=== PATIENT | male | born 1940 | race Caucasian/White ===

== ENCOUNTER 2021-11-09 08:41 | Inpatient (IN) | payer OTHER, MEDICAID ==
[~2021-11-09] VITALS: Ht 152.4 cm; Wt 60.8 kg
[2021-11-09 08:41] VITALS: BP_SYST 159
--- NOTE | 2021-11-09 08:49 | NUR ---
CT Radiology at .
[2021-11-09 09:12] LABS: BASOPHILS % (AUTO) 0.4 % (0.0-2.0); EOSINOPHILS # (AUTO) 0.1 K/uL (0.0-0.4); EOSINOPHILS % (AUTO) 1.8 % (0.0-4.0); HEMATOCRIT 45.3 % (36-54); HEMOGLOBIN 14.9 g/dL (14.0-18.0); LYMPHOCYTES # (AUTO) 1.1 K/uL (1.0-5.5); LYMPHOCYTES % (AUTO) 15.9 % (20.5-51.5); MEAN CORPUSCULAR HEMOGLOBIN 31 pg (27-31); MEAN CORPUSCULAR HGB CONC 33 % (32-36); MEAN CORPUSCULAR VOLUME 93 fL (79.0-98.0); MONOCYTES # (AUTO) 0.6 K/uL (0.0-1.0); MONOCYTES % (AUTO) 8.8 % (1.7-9.3); NEUTROPHILS # (AUTO) 4.9 K/uL (1.8-7.7); NEUTROPHILS % (AUTO) 73.1 % (40.0-70.0); PLATELET COUNT (AUTO) 158 K/uL (130-430); RED BLOOD CELL COUNT(AUTO) 4.87 MIL/uL (4.2-6.2); RED CELL DISTRIBUTION WIDTH 14.2 % (9.0-15.0); WHITE BLOOD COUNT (AUTO) 6.7 K/uL (4.8-10.8)
[2021-11-09 09:17] LABS: ANION GAP 10 (5-15); CALCIUM 8.5 mg/dL (8.4-11.0); CHLORIDE 108 mmol/L (98-107); CREATININE 1.05 mg/dL (0.55-1.30); GLUCOSE 123 mg/dL (70-99); POTASSIUM 3.9 mmol/L (3.5-5.1); SODIUM SERUM 144 mmol/L (136-145); UREA NITROGEN, BLOOD 19 mg/dL (8-21)
[2021-11-09 09:26] LABS: ALANINE AMINOTRANSFERASE 129 U/L (12-78); ALBUMIN 3.1 g/dL (3.4-4.8); ASPARTATE AMINOTRANSFERASE 120 U/L (10-37)
--- NOTE | 2021-11-09 09:36 | NUR ---
ASSUMED CARE, PT AAOX4, PARAGUAYAN SPEAKING-SPEAKING 2-3 WORD SENTENCES, SOB, ON VIA NC @ 98%, TACHYPNEIC AT 26 BREATHS/MIN. STATES BEING SOB X 1 WEEK, PROGRESSIVELY GETTING WORSE. REPORTS ANTERIOR CHEST WALL PAIN RADIATING TO LEFT SHOULDER , INTERMITTENT SINCE THIS AM. DENIES NUMBNESS/TINGLING. SKIN W/D. BLE EDEMA NOTED, MORE IN LEFT KNEE AREA. REPORTS LONG HISTORY OF CARDIAC PROBLEMS, UNKNOWN EXACT HISTORY.
[2021-11-09] MEDS ORDERED: dilTIAZem HCL IVP 5 MG/ML VIAL IVP ONE (10:15)
--- NOTE | 2021-11-09 10:28 | NUR ---
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
--- NOTE | 2021-11-09 11:09 | NUR ---
Admit bed requested Patient will be admitted to care of . Admitted to TELE unit. Diagnosis CHF, AFIB Inpatient (Yes or No) Y Observation (Yes or No) N Orientation concerns or request close to nursing station (Yes or No) N Covid Status PENDING On vent or bipap N Isolation requirements N Needs a sitter N From Home (Yes or if No enter name of facility) Y Requires Dialysis (Yes or No) N Med Rec Completed (Yes of No) Y
[2021-11-09] MEDS ORDERED: FUROSEMIDE 20 MG/2 ML VIAL IVP ONE (11:15)
--- NOTE | 2021-11-09 11:19 | NUR ---
PT UPDATED ON PLAN OF CARE FOR ADMISSION, VERBALIZED UNDERSTANDING. SAFTEY PRECAUTIONS IN PAC. URINAL PROVIDD.
--- NOTE | 2021-11-09 15:26 | NUR ---
Patient will be admitted to care of DR TOLEDO. Admitted to unit. Will go to room . Belongings list completed. Complete and up to date summary report printed. SBAR report to be given at bedside with opportunity for questions.
[2021-11-09 16:00] VITALS: BP_SYST 122
[2021-11-09 16:40] VITALS: BP_SYST 122
--- NOTE | 2021-11-09 17:46 | NUR ---
PT ADMITTED UNABLE TORECALL MEDICATIONS AT THIS TIME NO DISTRESS NOTED AT THIS TIME WILL CONTINUE TO MONITOR AND ASSESSS AND CALL MD FOR ORDERS
--- NOTE | 2021-11-09 18:56 | NUR ---
PT BELONGINGS AT BEDSIDE ANT PT HAS MEDICATION BOTTLES WILL ENDORSE TO ONCOMING RN TO FOLLOW UP WITH MEDICATION RECONCILLIATION CN MADE AWARE PT REMAINS A POOR HISTORIAN
[2021-11-09] MEDS ORDERED: HYDROcodone/ACETAMIN 10-325 MG TAB PO PRN (19:00)
[2021-11-09] MEDS ORDERED: NALOXONE HCL 0.4 MG/ML AMP (NARCAN) IVP PRN ×2 (19:00)
[2021-11-09] MEDS ORDERED: ACETAMINOPHEN 325 MG TABLET PO PRN ×2 (19:00→19:15)
[2021-11-09] MEDS ORDERED: ONDANSETRON HCL 4 MG/2 ML VIAL IVP PRN (19:00)
[2021-11-09] MEDS ORDERED: APIX2.5T PO (19:41)
[2021-11-09] MEDS ORDERED: METF750T46 PO (19:44)
[2021-11-09 20:00] VITALS: BP_SYST 127
--- NOTE | 2021-11-09 20:00 | NUR ---
Received report from Sindi HOU. Pt is awake, alert and oriented x4, vs stable, afib 110-120's on the monitor, denies any pain no acute distress. Medications will be reconciled. Assuming care for pt. Maintain safety, side rails up, call light within reach, bed to low position. Will closely monitor pt.
[2021-11-09] MEDS ORDERED: VALS80TA2 PO (20:01)
[2021-11-09] MEDS ORDERED: ASPI-1393 PO (20:03)
[2021-11-09] MEDS ORDERED: FERR-69 PO (20:10)
[2021-11-09] MEDS ORDERED: PRED10TA PO (20:10)
[2021-11-09] MEDS ORDERED: FURO-150 PO (20:12)
[2021-11-09] MEDS ORDERED: AMIO200T66 PO (20:13)
[2021-11-09] MEDS ORDERED: POTA-197 PO (20:36)
[2021-11-09] MEDS: FUROSEMIDE 20 MG/2 ML VIAL IVP SCH (20:47)
[2021-11-09] MEDS ORDERED: PRO40 PO (20:50)
[2021-11-09] MEDS ORDERED: NORMAL SALINE 5 ML DISP.SYRIN IVF SCH (22:00)
[2021-11-09] MEDS: NORMAL SALINE 5 ML DISP.SYRIN IVF SCH (22:00)
--- NOTE | 2021-11-09 22:12 | NUR ---
Paged Dr. Winter to reconcile meds. Awaiting for call back.
--- NOTE | 2021-11-09 23:08 | NUR ---
CRITICAL LAB: Soni Graham from Laboratory called with critical lab value Troponin 174. Medical record number and patient name verified. Read back of values done. Paged Dr. Winter to notified of value. Awaiting for call back. orders given at this time. Addendum: 11/09/21 at 2311 by [employer] department supervisor Awaiting for call back for possible orders.
[2021-11-09] MEDS ORDERED: AMIODARONE HCL 200 MG TABLET PO ONE (23:15)
[2021-11-09 23:47] VITALS: BP_SYST 123
--- NOTE | 2021-11-09 23:58 | NUR ---
2nd page to Dr. Winter. called back and informed with Trop 179, pt denies any chest pain, vs stable but heart rate goes up as high in the 125 afib on monitor. Order received for cardiology consult with Dr. Moy Vasquez. Also, informed amiodarone will be given. Assuming care for pt.
[2021-11-10] MEDS: HYDROcodone/ACETAMIN 5-325 MG TAB (NORCO/ VICODIN) PO PRN (00:27)
[2021-11-10] MEDS: APIXABAN 2.5 MG TABLET PO SCH ×3 (00:28→22:50)
[2021-11-10] MEDS: POTASSIUM CHLORIDE 20 MEQ TAB.PRT.SR PO SCH ×2 (00:32→09:41)
[2021-11-10 00:58] VITALS: BP_SYST 125
[2021-11-10 04:52] VITALS: BP_SYST 127
[2021-11-10 06:22] LABS: BASOPHILS % (AUTO) 0.6 % (0.0-2.0); EOSINOPHILS # (AUTO) 0.1 K/uL (0.0-0.4); EOSINOPHILS % (AUTO) 1.9 % (0.0-4.0); HEMATOCRIT 47.5 % (36-54); HEMOGLOBIN 15.8 g/dL (14.0-18.0); LYMPHOCYTES # (AUTO) 1.2 K/uL (1.0-5.5); LYMPHOCYTES % (AUTO) 17.2 % (20.5-51.5); MEAN CORPUSCULAR HEMOGLOBIN 31 pg (27-31); MEAN CORPUSCULAR HGB CONC 33 % (32-36); MEAN CORPUSCULAR VOLUME 92 fL (79.0-98.0); MONOCYTES # (AUTO) 0.6 K/uL (0.0-1.0); MONOCYTES % (AUTO) 8.5 % (1.7-9.3); NEUTROPHILS # (AUTO) 5.1 K/uL (1.8-7.7); NEUTROPHILS % (AUTO) 71.8 % (40.0-70.0); PLATELET COUNT (AUTO) 164 K/uL (130-430); RED BLOOD CELL COUNT(AUTO) 5.14 MIL/uL (4.2-6.2); RED CELL DISTRIBUTION WIDTH 14.4 % (9.0-15.0); WHITE BLOOD COUNT (AUTO) 7.1 K/uL (4.8-10.8)
[2021-11-10 06:33] LABS: ANION GAP 8 (5-15); CALCIUM 8.5 mg/dL (8.4-11.0); CHLORIDE 104 mmol/L (98-107); CREATININE 1.01 mg/dL (0.55-1.30); GLUCOSE 116 mg/dL (70-99); POTASSIUM 4.2 mmol/L (3.5-5.1); SODIUM SERUM 141 mmol/L (136-145); UREA NITROGEN, BLOOD 22 mg/dL (8-21)
[2021-11-10 06:42] LABS: PHOSPHORUS 4.4 mg/dL (2.7-4.5)
[2021-11-10] MEDS: NORMAL SALINE 5 ML DISP.SYRIN IVF SCH ×3 (06:51→22:52)
--- NOTE | 2021-11-10 07:27 | NUR ---
CRITICAL LAB: Miladys Chin from Laboratory called with critical lab value [id number]. Medical record number and patient name verified. Read back of values done. Dr. Winter will be notified of value. Will pass on to receiving RN Sindi. Pt stable no chespain at this time.
--- NOTE | 2021-11-10 07:45 | NUR ---
RECEIVED PT WITH CHEST PAIN 09/06 ASSEMBLY WORKER MADE AWARE NORCO GIVEN LASIX GIVEN AM MEDS GIVEN ASSESSMENT COMPLETED TROPONIN RESULTS REPORTED TO ASSEMBLY WORKER PLAN OF CARE REVIEWED WILL CONTINUE TO MONIOTR AND ASSESS
[2021-11-10] MEDS ORDERED: NON-FORMULARY MEDICATION (Ferrous Sulfate 325 MG) PO SCH (09:00)
[2021-11-10] MEDS ORDERED: VALSARTAN 80 MG TABLET (DIOVAN) PO SCH (09:00)
--- NOTE | 2021-11-10 09:30 | NUR ---
PT DENIES CHEST PAIN AT THIS TIME NO DISTRESS AWAITING CARDIOLOGIT TO ROUND
[2021-11-10] MEDS: FUROSEMIDE 20 MG/2 ML VIAL IVP SCH ×2 (09:40→22:50)
[2021-11-10] MEDS: LOSARTAN POTASSIUM 50 MG TABLET (COZAAR) PO SCH (09:41)
[2021-11-10] MEDS: predniSONE 10 MG TABLET PO SCH (09:41)
[2021-11-10] MEDS: FERROUS SULFATE 325 MG TABLET.DR PO SCH (09:41)
[2021-11-10] MEDS: ASPIRIN 81 MG TABLET(ECOTRIN) PO SCH (09:42)
[2021-11-10] MEDS: AMIODARONE HCL 200 MG TABLET PO SCH ×2 (09:42→22:49)
[2021-11-10] MEDS ORDERED: CARVEDILOL 6.25 MG TABLET (COREG) PO ONE (11:15)
--- NOTE | 2021-11-10 12:00 | NUR ---
CHECKER AND PACKER IN TO SEE PT WITH NEW MEDICATION NOTED AND CARRIED OUT
[2021-11-10 12:47] VITALS: BP_SYST 129
[2021-11-10 16:37] VITALS: BP_SYST 98
[2021-11-10] MEDS: INSULIN REGULAR, HUMAN 100 UNITS/ML, 10 ML VIAL (humuLIN R) SUBCUT PRN (18:00)
--- NOTE | 2021-11-10 19:35 | NUR ---
STABLE NO CHEST PAIN WILL ENDORSE MEENA TO NOC RN
--- NOTE | 2021-11-10 20:00 | NUR ---
Received pt. Pt is awake alert and oriented x3, vs stable, afib controlled on the monitor. Patient is sitting up, denies any pain, no sign of distress. Assuming care for pt. Scheduled meds will be given as ordered. Labs reviewed. Assuming care for pt.
[2021-11-10 20:09] VITALS: BP_SYST 93
[2021-11-10 22:45] VITALS: BP_SYST 113
[2021-11-10] MEDS: CARVEDILOL 6.25 MG TABLET (COREG) PO SCH (22:51)
[2021-11-11 00:51] VITALS: BP_SYST 92
[2021-11-11 02:16] VITALS: BP_SYST 99
[2021-11-11] MEDS: LORazepam 2 MG/ML VIAL IVP PRN (02:20)
[2021-11-11] MEDS: NORMAL SALINE 5 ML DISP.SYRIN IVF SCH ×3 (06:28→21:29)
[2021-11-11 06:34] LABS: BASOPHILS % (AUTO) 0.5 % (0.0-2.0); EOSINOPHILS % (AUTO) 0.4 % (0.0-4.0); HEMATOCRIT 43.9 % (36-54); HEMOGLOBIN 14.5 g/dL (14.0-18.0); LYMPHOCYTES # (AUTO) 0.9 K/uL (1.0-5.5); LYMPHOCYTES % (AUTO) 12.9 % (20.5-51.5); MEAN CORPUSCULAR HEMOGLOBIN 31 pg (27-31); MEAN CORPUSCULAR HGB CONC 33 % (32-36); MEAN CORPUSCULAR VOLUME 93 fL (79.0-98.0); MONOCYTES # (AUTO) 0.6 K/uL (0.0-1.0); MONOCYTES % (AUTO) 8.7 % (1.7-9.3); NEUTROPHILS # (AUTO) 5.5 K/uL (1.8-7.7); NEUTROPHILS % (AUTO) 77.5 % (40.0-70.0); PLATELET COUNT (AUTO) 152 K/uL (130-430); RED BLOOD CELL COUNT(AUTO) 4.74 MIL/uL (4.2-6.2); RED CELL DISTRIBUTION WIDTH 14.2 % (9.0-15.0); WHITE BLOOD COUNT (AUTO) 7.1 K/uL (4.8-10.8)
[2021-11-11 07:12] LABS: ALANINE AMINOTRANSFERASE 140 U/L (12-78); ALBUMIN 2.7 g/dL (3.4-4.8); ANION GAP 6 (5-15); ASPARTATE AMINOTRANSFERASE 88 U/L (10-37); CALCIUM 8.2 mg/dL (8.4-11.0); CHLORIDE 106 mmol/L (98-107); CREATININE 1.01 mg/dL (0.55-1.30); GLUCOSE 116 mg/dL (70-99); PHOSPHORUS 4.2 mg/dL (2.7-4.5); POTASSIUM 4.1 mmol/L (3.5-5.1); SODIUM SERUM 141 mmol/L (136-145); TOTAL BILIRUBIN 0.6 mg/dL (0.0-1.0); UREA NITROGEN, BLOOD 30 mg/dL (8-21)
--- NOTE | 2021-11-11 07:28 | NUR ---
Endorsed pt to Manjeetrodger campo rn. Pt is asleep but arousable. PT vs stable, no acute distress noted. blood sugar 100 this morning. Maintain safety, side rails up, call light within reach, bed to low position.
--- NOTE | 2021-11-11 07:41 | NUR ---
Report received from SAVI Nur for continuity of care. Patient in stable condition. No distress noted.
[2021-11-11 08:00] VITALS: BP_SYST 100
[2021-11-11] MEDS: POTASSIUM CHLORIDE 20 MEQ TAB.PRT.SR PO SCH (09:52)
[2021-11-11] MEDS: ASPIRIN 81 MG TABLET(ECOTRIN) PO SCH (09:52)
[2021-11-11] MEDS: predniSONE 10 MG TABLET PO SCH (09:53)
[2021-11-11] MEDS: AMIODARONE HCL 200 MG TABLET PO SCH ×2 (09:53→21:22)
[2021-11-11] MEDS: FERROUS SULFATE 325 MG TABLET.DR PO SCH (09:53)
[2021-11-11] MEDS: LOSARTAN POTASSIUM 50 MG TABLET (COZAAR) PO SCH (09:54)
[2021-11-11] MEDS: CARVEDILOL 6.25 MG TABLET (COREG) PO SCH ×2 (09:54→21:21)
[2021-11-11] MEDS: FUROSEMIDE 20 MG/2 ML VIAL IVP SCH ×2 (09:56→21:21)
[2021-11-11] MEDS: APIXABAN 2.5 MG TABLET PO SCH ×2 (10:04→21:21)
--- NOTE | 2021-11-11 11:07 | NUR ---
CONSULTATION PAGED/CALLED Reason for Consultation: [] TRANSAMINITIS Person Who was Notified: [] CARLOS Consulting Physician: [] DR GARCIA, A Art Gilder Specialty: [] GI Ordering Physician: [] DR Catia TOLEDO
--- NOTE | 2021-11-11 11:15 | NUR ---
CONSULTATION PAGED/CALLED Reason for Consultation: [] RESP FAIL Person Who was Notified: [] NAZIA Consulting Physician: [] DR NIX Juvenile Court Judge Specialty: [] PULMO Ordering Physician: [] DR OTLEDO
[2021-11-11 12:00] VITALS: BP_SYST 108
--- NOTE | 2021-11-11 12:23 | NUR ---
PHYSICAL THERAPY EVALUATION COMPLETED. PATIENT IS SUPERVISED IN HIS FUNCTIONAL MOBILITY. HE NEEDS TO USE THE FWW. HE AMBULATED WITH 4 LITERS OF O2. NURSING MAY CONTINUE TO ASSIST THE PATIENT. DISCHARGE FROM PHYSICAL THERAPY. Addendum: 11/11/21 at 1225 by Gabriel Britton PT INFORMED PATIENT'S RN.
--- NOTE | 2021-11-11 13:00 | NUR ---
Patient explained to be on NPO from radiology department until time of procedure around 7 pm. Patient said he is able to be NPO until sthat time. DIOMEDES Cooley made aware.
[2021-11-11 16:00] VITALS: BP_SYST 110
--- NOTE | 2021-11-11 20:01 | NUR ---
Report given to SAVI Belcher for continuity of care. Patient stable condition. No distress noted.
[2021-11-11 21:18] VITALS: BP_SYST 112
[2021-11-11] MEDS: metFORMIN HCL 500 MG TABLET PO SCH (21:20)
[2021-11-12 00:09] VITALS: BP_SYST 102
[2021-11-12] MEDS: NORMAL SALINE 5 ML DISP.SYRIN IVF SCH ×3 (06:04→22:53)
[2021-11-12] MEDS: PANTOPRAZOLE SODIUM 40 MG TAB PO SCH (06:04)
[2021-11-12 06:54] LABS: BASOPHILS # (AUTO) 0.1 K/uL (0.0-0.2); BASOPHILS % (AUTO) 0.6 % (0.0-2.0); EOSINOPHILS % (AUTO) 0.3 % (0.0-4.0); HEMATOCRIT 49.6 % (36-54); HEMOGLOBIN 16.7 g/dL (14.0-18.0); LYMPHOCYTES # (AUTO) 1.2 K/uL (1.0-5.5); LYMPHOCYTES % (AUTO) 14.5 % (20.5-51.5); MEAN CORPUSCULAR HEMOGLOBIN 31 pg (27-31); MEAN CORPUSCULAR HGB CONC 34 % (32-36); MEAN CORPUSCULAR VOLUME 93 fL (79.0-98.0); MONOCYTES # (AUTO) 0.6 K/uL (0.0-1.0); MONOCYTES % (AUTO) 7.2 % (1.7-9.3); NEUTROPHILS # (AUTO) 6.4 K/uL (1.8-7.7); NEUTROPHILS % (AUTO) 77.4 % (40.0-70.0); PLATELET COUNT (AUTO) 168 K/uL (130-430); RED BLOOD CELL COUNT(AUTO) 5.35 MIL/uL (4.2-6.2); RED CELL DISTRIBUTION WIDTH 14.3 % (9.0-15.0); WHITE BLOOD COUNT (AUTO) 8.3 K/uL (4.8-10.8)
--- NOTE | 2021-11-12 07:19 | NUR ---
Page to Doctor MD Lianna,regarding patient complaint of chest pain. Miguel Ocampo RN
--- NOTE | 2021-11-12 07:30 | NUR ---
OPEN NOTE. Received patient resting in bed. Complaining of sharp pains under is right under arm. MD Winter was paged and he ordered a STAT EKG. No shortness of breath noted. FLA 22G patent with no infiltration noted. Vitals assessed. All needs met, call light within reach. Safety checks in place. Will continue to monitor.
[2021-11-12 07:38] LABS: ANION GAP 6 (5-15); CALCIUM 8.8 mg/dL (8.4-11.0); CHLORIDE 101 mmol/L (98-107); CREATININE 1.31 mg/dL (0.55-1.30); GLUCOSE 142 mg/dL (70-99); POTASSIUM 4.4 mmol/L (3.5-5.1); SODIUM SERUM 138 mmol/L (136-145); UREA NITROGEN, BLOOD 34 mg/dL (8-21)
[2021-11-12 07:53] VITALS: BP_SYST 118
[2021-11-12] MEDS: LOSARTAN POTASSIUM 50 MG TABLET (COZAAR) PO SCH (08:37)
[2021-11-12] MEDS: FERROUS SULFATE 325 MG TABLET.DR PO SCH (08:37)
[2021-11-12] MEDS: predniSONE 10 MG TABLET PO SCH (08:37)
[2021-11-12] MEDS: AMIODARONE HCL 200 MG TABLET PO SCH ×2 (08:38→21:14)
[2021-11-12] MEDS: POTASSIUM CHLORIDE 20 MEQ TAB.PRT.SR PO SCH (08:38)
[2021-11-12] MEDS: CARVEDILOL 6.25 MG TABLET (COREG) PO SCH ×2 (08:39→21:17)
[2021-11-12] MEDS: ASPIRIN 81 MG TABLET(ECOTRIN) PO SCH (08:39)
[2021-11-12] MEDS: metFORMIN HCL 500 MG TABLET PO SCH ×2 (08:39→21:16)
[2021-11-12] MEDS: APIXABAN 2.5 MG TABLET PO SCH ×2 (08:44→21:15)
[2021-11-12] MEDS: FUROSEMIDE 20 MG/2 ML VIAL IVP SCH ×2 (09:00→21:17)
[2021-11-12 10:10] LABS: TOTAL IRON BIND. CAPACITY 362 ug/dL (250-450)
[2021-11-12 10:20] LABS: ACETAMINOPHEN < 1 ug/mL (1-30)
[2021-11-12 12:00] VITALS: BP_SYST 93
--- NOTE | 2021-11-12 12:45 | NUR ---
Patient rounds Patient resting in bed. Patient is currently NPO due to procedure he will have at 4pm. No pain, no distress, no sob. Patient is on Nasal cannula at 2LPM. All needs met, safety protocols in place. Call light within reach. Will continue to monitor.
--- NOTE | 2021-11-12 12:50 | NUR ---
CM: home health and DME, faxed referral to [facility] Denzel fax # [phone], tel [phone]. Jer will arrange the FWW and deliver to pt's room . Home O2: CORINNE fax the referral attrandee [facility] # [phone] P# [phone] for home oxygen set up. Griffin will call back with the delivery ETA. Addendum: 11/12/21 at 1600 by Rhys Baltazar RN Home O2: per Naima/[facility] resp: needs O2 sat on RA for pt to qualify the home oxygen. I requested to put the order on hold since RN reported that the pt is able to get out of bed with FWW on RA with sat 98 %. The repeat O2 sat can be done once the pt returns back from the HIDA scan around 6 pm. The pt is not ready for dc today.
--- NOTE | 2021-11-12 14:17 | NUR ---
Dietitian Recommendations * Continue 2 gm Na diet * Encourage PO intakes * Consider additional healthy snack options and/or ONS if PO intakes decline LP, RD Please refer to Nutrition Assessment for details. Addendum: 11/12/21 at 1418 by [address] De Jesus Roche RD Amended: Links added.
--- NOTE | 2021-11-12 15:30 | NUR ---
Patient rounds Patient up in wheel chair, ready to go to HIDA Scan procedure. Patient has no pain, no SOB, no distress at this time. Ativan via IVP was given for procedure prep. Patient on room air saturating at 98% and stable. Patient will be back in about 2 hours per procedure. Will monitor him when he comes back.
[2021-11-12 15:52] VITALS: BP_SYST 104
[2021-11-12] MEDS: LORazepam 2 MG/ML VIAL IVP PRN (16:40)
[2021-11-12 17:37] LABS: BARBITURATE, URINE NEGATIVE (NEG <=200); OPIATE, URINE POSITIVE (NEG <=100); UR TRICYCLIC ANTIDEPRESSANTS NEGATIVE (NEG <=300); URINE AMPHETAMINE NEGATIVE (NEG <=500); URINE OXYCODONE SCREEN NEGATIVE (NEG <=100); URINE PROPOXYPHENE SCREEN NEGATIVE (NEG <=300)
[2021-11-12 17:38] LABS: BENZODIAZEPINE, URINE NEGATIVE (NEG <=150); CANNABINOID, URINE NEGATIVE (NEG <=50); COCAINE, URINE NEGATIVE (NEG <=150); METHAMPHETAMINES SCREEN,URINE NEGATIVE (NEG <=500); PHENCYCLIDINE SCREEN,URINE NEGATIVE (NEG <=25); URINE METHADONE NEGATIVE (NEG <=200)
--- NOTE | 2021-11-12 18:31 | NUR ---
CLOSE NOTE. Patient resting in bed. Patient to go do HIDA scan retry at 1900. No pain, No shortness of breath noted. Patient is still NPO. LFA 22G patent with no infiltration noted. Vitals assessed. All needs met, call light within reach. Safety checks in place. Will Enodrse to night shfit nurse.
[2021-11-12 20:08] VITALS: BP_SYST 132
--- NOTE | 2021-11-12 20:08 | NUR ---
PATIENT SAYS HE WAS LOOKING FOR HIS MONEY. HE WAS FOUND SEATED ON THE FLOOR NEXT TO HIS BED. ASSISTED TO WHEELCHAIR FOR HIDASCAN EXAM. PATIENT DENIES PAIN. VITAL SIGNS ASSESSMENT. OFFERED FOOD/WATER. PATIENT DECLINES FURTHER NEEDS. MARION JUAN RN
[2021-11-12] MEDS: CEFEPIME 1 GM in D5W 50 ML IV SCH (21:16)
[2021-11-13 00:13] VITALS: BP_SYST 117
[2021-11-13 05:18] VITALS: BP_SYST 113
[2021-11-13] MEDS: NORMAL SALINE 5 ML DISP.SYRIN IVF SCH ×3 (06:16→21:34)
[2021-11-13] MEDS: PANTOPRAZOLE SODIUM 40 MG TAB PO SCH (06:16)
[2021-11-13 07:17] LABS: INR 1.4 (0.80-1.20); PROTHROMBIN TIME 14.3 SECS (9.5-12.5)
[2021-11-13 07:22] LABS: BASOPHILS # (AUTO) 0.1 K/uL (0.0-0.2); BASOPHILS % (AUTO) 1.2 % (0.0-2.0); EOSINOPHILS % (AUTO) 0.1 % (0.0-4.0); HEMATOCRIT 49.9 % (36-54); HEMOGLOBIN 16.9 g/dL (14.0-18.0); LYMPHOCYTES # (AUTO) 1.3 K/uL (1.0-5.5); MEAN CORPUSCULAR HEMOGLOBIN 31 pg (27-31); MEAN CORPUSCULAR HGB CONC 34 % (32-36); MEAN CORPUSCULAR VOLUME 92 fL (79.0-98.0); MONOCYTES # (AUTO) 0.8 K/uL (0.0-1.0); MONOCYTES % (AUTO) 8.5 % (1.7-9.3); NEUTROPHILS # (AUTO) 6.8 K/uL (1.8-7.7); NEUTROPHILS % (AUTO) 75.2 % (40.0-70.0); PLATELET COUNT (AUTO) 167 K/uL (130-430); RED BLOOD CELL COUNT(AUTO) 5.45 MIL/uL (4.2-6.2); RED CELL DISTRIBUTION WIDTH 14.2 % (9.0-15.0)
--- NOTE | 2021-11-13 07:35 | NUR ---
OPEN NOTE. Received patient resting in bed. Dr Boland came in to see him to discuss HIDA scan and see if any new orders. Will check MD notes. No shortness of breath noted. FLA 22G noted to be infiltrated. Patient complained of pain at IV site will change site. Vitals assessed. All needs met, call light within reach. Safety checks in place. Will continue to monitor.
[2021-11-13 07:43] LABS: ALANINE AMINOTRANSFERASE 133 U/L (12-78); ALBUMIN 2.9 g/dL (3.4-4.8); ANION GAP 9 (5-15); ASPARTATE AMINOTRANSFERASE 73 U/L (10-37); BILIRUBIN,DIRECT 0.2 mg/dL (0.0-0.3); CALCIUM 9.2 mg/dL (8.4-11.0); CHLORIDE 102 mmol/L (98-107); CREATININE 1.29 mg/dL (0.55-1.30); GLUCOSE 100 mg/dL (70-99); PHOSPHORUS 4.6 mg/dL (2.7-4.5); POTASSIUM 4.4 mmol/L (3.5-5.1); SODIUM SERUM 139 mmol/L (136-145); TOTAL BILIRUBIN 0.8 mg/dL (0.0-1.0); UREA NITROGEN, BLOOD 36 mg/dL (8-21)
[2021-11-13 07:45] VITALS: BP_SYST 114
[2021-11-13 08:06] LABS: ALPHA-1-ANTITRYPSIN, S 145 mg/dL (101-187); FERRITIN 47 ng/mL (30-400)
[2021-11-13 08:09] LABS: C-REACTIVE PROTEIN QUANT < 0.2 mg/dL (0-0.5)
[2021-11-13] MEDS: LOSARTAN POTASSIUM 50 MG TABLET (COZAAR) PO SCH (09:07)
[2021-11-13] MEDS: CARVEDILOL 6.25 MG TABLET (COREG) PO SCH ×2 (09:07→21:33)
[2021-11-13] MEDS: metFORMIN HCL 500 MG TABLET PO SCH ×2 (09:07→21:31)
[2021-11-13] MEDS: POTASSIUM CHLORIDE 20 MEQ TAB.PRT.SR PO SCH (09:08)
[2021-11-13] MEDS: FERROUS SULFATE 325 MG TABLET.DR PO SCH (09:08)
[2021-11-13] MEDS: AMIODARONE HCL 200 MG TABLET PO SCH ×2 (09:08→21:32)
[2021-11-13] MEDS: predniSONE 10 MG TABLET PO SCH (09:08)
[2021-11-13] MEDS: APIXABAN 2.5 MG TABLET PO SCH ×2 (09:09→21:33)
[2021-11-13] MEDS: FUROSEMIDE 20 MG/2 ML VIAL IVP SCH ×2 (10:22→21:00)
[2021-11-13] MEDS: CEFEPIME 1 GM in D5W 50 ML IV SCH ×2 (10:22→21:20)
[2021-11-13 10:51] LABS: ERYTHROCYTE SEDIMENTATION RATE 2 MM/HR (0-15)
[2021-11-13] MEDS ORDERED: COR6.25 PO (11:38)
[2021-11-13] MEDS ORDERED: Ferrous Sulfate PO (11:38)
[2021-11-13] MEDS ORDERED: LOSA50TA3 PO (11:38)
[2021-11-13] MEDS ORDERED: FURO-150 PO (11:38)
[2021-11-13 12:15] VITALS: BP_SYST 120
--- NOTE | 2021-11-13 12:30 | NUR ---
Patient rounds Patient resting in bed. Patient is currently NPO due to procedure he will have at 4pm. No pain, no distress, no sob. Patient is on Nasal cannula at 2LPM. All needs met, safety protocols in place. Call light within reach. Will continue to monitor. Addendum: 11/13/21 at 1231 by Masha Marin LVN Patient rounds Patient resting in bed. No pain, no distress, no sob. Patient is on Nasal cannula at 2LPM. All needs met, safety protocols in place. Call light within reach. Will continue to monitor.
--- NOTE | 2021-11-13 14:54 | NUR ---
[facility] Received a call from Denzel of [facility] stating that they delivered FWW yesterday to patients home. Patient is only waiting on oxygen qualification/delivery.
--- NOTE | 2021-11-13 15:48 | NUR ---
Patient rounds Patient resting in bed. No pain, no distress, no sob. Patient is on room air saturating at 95%. All needs met, safety protocols in place. Call light within reach. Will continue to monitor.
[2021-11-13 16:15] VITALS: BP_SYST 115
[2021-11-13] MEDS: INSULIN REGULAR, HUMAN 100 UNITS/ML, 10 ML VIAL (humuLIN R) SUBCUT PRN (16:44)
--- NOTE | 2021-11-13 18:13 | NUR ---
CLOSE NOTE. Patient resting in bed. Patient to go do HIDA scan retry at 1900. No pain, No shortness of breath noted. Patient is still NPO. LFA 22G patent with no infiltration noted. Vitals assessed. All needs met, call light within reach. Safety checks in place. Will Enodrse to computer lab para professional nurse.
--- NOTE | 2021-11-13 18:58 | NUR ---
Patient Round Patients IV site to LFA infilitrated. Replaced to RFA 22G. Patient site is patent and on S.L. Will endorse to night time nanny nurse
--- NOTE | 2021-11-13 19:30 | NUR ---
OPENING NOTES: Patient received from AM shift. Patient is currently AA&Ox3 and able to make needs known and is speaking Divehi. Patient denies any pain or distress at this time. Patient is currently on RA and is being monitored by tele monitor. Patient ambulates to restroom with a walker. Safety measures are currently in place and patient has call light within reach. Will resume care and continue to monitor throughout the shift.
[2021-11-13 20:00] VITALS: BP_SYST 105
[2021-11-14] VITALS: BP_SYST 115
--- NOTE | 2021-11-14 00:15 | NUR ---
ROUNDS: Patient is bed resting no s/s of distress is noted at this time. V/S are within normal range. Safety measures remain in place and call light is within reach. Will continue to monitor throughout the shift.
[2021-11-14] MEDS: HYDROcodone/ACETAMIN 5-325 MG TAB (NORCO/ VICODIN) PO PRN (04:45)
[2021-11-14] MEDS: PANTOPRAZOLE SODIUM 40 MG TAB PO SCH (06:04)
[2021-11-14] MEDS: NORMAL SALINE 5 ML DISP.SYRIN IVF SCH ×2 (06:04→14:32)
--- NOTE | 2021-11-14 06:40 | NUR ---
CLOSING NOTES: Patient is in bed resting no s/s of distress is noted at this time. Patient is alert and able to make needs known, currently denying any pain or distress at this time. Patient is currently stable at this time and all current shift needs have been met at this time. Safety protocols remain in place. Will differ current care to AM shift for continuity of care.
[2021-11-14 06:50] LABS: BASOPHILS # (AUTO) 0.1 K/uL (0.0-0.2); BASOPHILS % (AUTO) 0.8 % (0.0-2.0); EOSINOPHILS % (AUTO) 0.1 % (0.0-4.0); HEMATOCRIT 46.2 % (36-54); HEMOGLOBIN 15.8 g/dL (14.0-18.0); LYMPHOCYTES # (AUTO) 1.1 K/uL (1.0-5.5); LYMPHOCYTES % (AUTO) 11.6 % (20.5-51.5); MEAN CORPUSCULAR HEMOGLOBIN 31 pg (27-31); MEAN CORPUSCULAR HGB CONC 34 % (32-36); MEAN CORPUSCULAR VOLUME 91 fL (79.0-98.0); MONOCYTES # (AUTO) 0.7 K/uL (0.0-1.0); MONOCYTES % (AUTO) 7.1 % (1.7-9.3); NEUTROPHILS # (AUTO) 7.9 K/uL (1.8-7.7); NEUTROPHILS % (AUTO) 80.4 % (40.0-70.0); PLATELET COUNT (AUTO) 148 K/uL (130-430); RED CELL DISTRIBUTION WIDTH 14.4 % (9.0-15.0); WHITE BLOOD COUNT (AUTO) 9.9 K/uL (4.8-10.8)
[2021-11-14 07:08] LABS: ALANINE AMINOTRANSFERASE 117 U/L (12-78); ALBUMIN 2.9 g/dL (3.4-4.8); ANION GAP 10 (5-15); ASPARTATE AMINOTRANSFERASE 58 U/L (10-37); CALCIUM 8.6 mg/dL (8.4-11.0); CHLORIDE 101 mmol/L (98-107); GLUCOSE 116 mg/dL (70-99); PHOSPHORUS 4.2 mg/dL (2.7-4.5); SODIUM SERUM 138 mmol/L (136-145); TOTAL BILIRUBIN 0.7 mg/dL (0.0-1.0); UREA NITROGEN, BLOOD 37 mg/dL (8-21)
[2021-11-14 07:58] LABS: C-REACTIVE PROTEIN QUANT < 0.2 mg/dL (0-0.5)
[2021-11-14] MEDS: FUROSEMIDE 20 MG/2 ML VIAL IVP SCH (09:00)
[2021-11-14] MEDS: CARVEDILOL 6.25 MG TABLET (COREG) PO SCH (09:00)
[2021-11-14] MEDS: predniSONE 10 MG TABLET PO SCH (09:00)
[2021-11-14] MEDS: FERROUS SULFATE 325 MG TABLET.DR PO SCH (09:00)
[2021-11-14] MEDS: POTASSIUM CHLORIDE 20 MEQ TAB.PRT.SR PO SCH (09:00)
[2021-11-14] MEDS: AMIODARONE HCL 200 MG TABLET PO SCH (09:00)
[2021-11-14] MEDS: metFORMIN HCL 500 MG TABLET PO SCH (09:00)
[2021-11-14] MEDS: LOSARTAN POTASSIUM 50 MG TABLET (COZAAR) PO SCH (09:00)
[2021-11-14] MEDS: APIXABAN 2.5 MG TABLET PO SCH (09:00)
[2021-11-14] MEDS: CEFEPIME 1 GM in D5W 50 ML IV SCH (09:00)
[2021-11-14 09:47] LABS: ERYTHROCYTE SEDIMENTATION RATE 2 MM/HR (0-15)
--- NOTE | 2021-11-14 10:37 | NUR ---
INFORMED RN CHANDNI THAT THE PATIENT IS OFF THE TELE MONITOR
--- NOTE | 2021-11-14 14:30 | NUR ---
Discharge Planninh: EMIGDIO followed up with [facility] [phone]. FWW and deliver to home to naif
--- NOTE | 2021-11-14 14:37 | NUR ---
DISCHARGE PLANNING Order for home health, fww. Per abbey tool and production planner home health set up with [facility] & FWW was delivered to home, dtr received. This am I spoke with pt at bedside & states lives home alone, independent, has cane. Is agreeable with home health, no preference.
[2021-11-14 17:20] VITALS: BP_SYST 109
[2021-11-15 03:06] LABS: HEPATITIS A AB, IgM Negative (Negative); HEPATITIS B CORE AB, IgM Negative (Negative); HEPATITIS B SURFACE AG Negative (Negative)
[2021-11-15 13:06] LABS: ANTI-SMOOTH MUSCLE AB 4 Units (0-19); LIVER-KIDNEY MICROSOMAL AB 0.7 Units (0.0-20.0)
== END 2021-11-14 19:33 | disposition home health service (06) | DRG 280 ==
LOC: SED 08:41 → STU 11:06
PROVIDERS: ADMIT Preventive Medicine Preventive Medicine/Occupational Environmental Medicine; ATTEND Preventive Medicine Preventive Medicine/Occupational Environmental Medicine
DX: I50.23 Acute on chronic systolic (congestive) heart failure (principal); E43 Unspecified severe protein-calorie malnutrition; I21.A1 Myocardial infarction type 2; J96.01 Acute respiratory failure with hypoxia; I48.20 Chronic atrial fibrillation, unspecified; N17.9 Acute kidney failure, unspecified; I42.9 Cardiomyopathy, unspecified; E87.70 Fluid overload, unspecified; Z20.822 Contact with and (suspected) exposure to COVID-19; R74.01 Elevation of levels of liver transaminase levels; E88.09 Other disorders of plasma-protein metabolism, not elsewhere classified; E83.41 Hypermagnesemia; E83.51 Hypocalcemia; E83.39 Other disorders of phosphorus metabolism; J44.9 Chronic obstructive pulmonary disease, unspecified; R73.9 Hyperglycemia, unspecified; Z68.26 Body mass index [BMI] 26.0-26.9, adult
CPT/HCPCS: 36415; 71045; 76700-TC; 78226; 80048; 80053; 80074; 80076; 80307; 82103; 82390; 82728; 82962; 83516; 83540; 83550; 83735; 83880; 84100; 84484; 85025; 85610-TC; 85651-TC; 86140; 86376; 93005; 93306; 96374; 96375; 99291; A9537; G0378; G0480; G0481; J0692; J1940; J2060; J3490; J7060; J7512